=== PATIENT | male | born 2000 | race Caucasian/White ===

== ENCOUNTER → 2024-05-03 | Outpatient (CLI) | payer OTHER ==
--- NOTE | 2024-05-03 18:27 | CA ---
Exercise Stress Test Report Name: Lakesha Worrell Exam Date: 05/03/2024 13:16 Exam Location: [facility] Ht (in): 70 Wt (lb): 190 BSA: 2.04 Ordering Phys: Sushma Hickey DO Referring Phys: Deedee Paula PAC Technologist: Galen Felipe Age: 23 Gender: M : 2000 Procedure CPT: Indications: R07.9 CHEST PAIN ICD-10 Codes: Patient History: CP, MARIE, PALP, HTN, FAMILY HX Medications: Meds past 24 hrs: Pretest Chest Pain: STRESS TEST Beto Protocol Exercise Duration (min:sec): 11:[address] Depressions (mm): 0 Angina Score: 0 Lima Score: 11.5 Resting HR (bpm): 104 Peak HR (bpm): 188 Resting BP (mmHg): 117 / 86 Peak BP (mmHg): 204 / 68 MPHR: 199 Target HR: 169 % MPHR: 94 METS: 12.1 Total Dose: Peak Dose: Atropine: Double Product: 76519 BP Response: Stress Termination: Fatigue Stress Symptoms: No chest pain or symptoms Stress Summary: The patient's target heart rate was achieved ECG ANALYSIS Resting ECG: Sinus rhythm. Normal conduction. No arrhythmias. Normal repolarization. Stress ECG: No ECG evidence of ischemia with exercise. CONCLUSIONS Patient falls into low-risk group (DTS >= +5). This associates the patient with an annual CV mortality <= 0.5%. Good exercise tolerance Normal electrocardiographic response to exercise with no evidence of exercised induced ischemia Dr. Salvador Rodriguez MD (Electronically Signed) Final Date: 03 May 2024 18:26
== END | disposition home or self-care (01) ==
LOC: RADNMMAIN 10:58
PROVIDERS: ATTEND Family Medicine
DX: R07.9 Chest pain, unspecified (principal); I10 Essential (primary) hypertension; R06.00 Dyspnea, unspecified
CPT/HCPCS: 93017